=== PATIENT | male | born 1985 | race African-American/Black ===

== ENCOUNTER 2016-10-23 12:52 | Inpatient (IN) | payer OTHER ==
[2016-10-23] VITALS (12 sets, daily range): BP systolic 98–140; BP diastolic 60–88; PULSE 71–216; RESP 16–24; TEMP 97.4–98.7; O2SAT 94–100
[~2016-10-23] VITALS: Ht 190.5 cm; Wt 112.4 kg
[~2016-10-23 12:52] MED LIST: IBUP800T23 PO; LIDOCAINE HCL 2% 100 MG/5 ML SYRINGE IV PUSH ONE; LIDOCAINE/D5W INJ 500 ML IV ONE; MAGNESIUM SULFATE 40 MEQ/10 ML VIAL IV ONE; ORPH100T PO; SODIUM BICARBONATE 8.4% INJ 50 MEQ/50 ML SYR IV ONE; TRAM50 PO
[2016-10-23] MEDS ORDERED: CALCIUM GLUCONATE 10% 1 GM/10 ML VIAL ONE (13:08)
[2016-10-23 13:46] LABS: I-STAT POTASSIUM 3.6 MMOL/L (3.5-4.9)
[2016-10-23 14:27] LABS: ANION GAP 14 MEQ/L (5-15); BLOOD UREA NITROGEN 24 MG/DL (7-18); CHLORIDE 103 MEQ/L (98-107); GLOMERULAR FILTRATION RATE 41 ML/MIN (>89); MAGNESIUM 1.9 MG/DL (1.5-2.5); POTASSIUM 3.6 MEQ/L (3.5-5.1); SODIUM (NA) 139 MEQ/L (136-145)
[2016-10-23 14:29] LABS: AUTOMATED NEUTROPHIL # 9.4 TH/MM3 (1.8-7.7); BASOPHIL # 0.1 TH/MM3 (0-0.2); BASOPHIL % 0.4 % (0.0-2.0); EOSINOPHIL % 0.2 % (0.0-4.0); HEMATOCRIT 46.1 % (39.0-51.0); HEMO FLAGS DIFF FINAL; LYMPH % 24.3 % (9.0-44.0); LYMPHOCYTE # 3.4 TH/MM3 (1.0-4.8); MEAN CELL VOLUME 72.8 FL (80.0-100.0); MEAN CORPUSCULAR HEMOGLOBIN 22.4 PG (27.0-34.0); MEAN CORPUSCULAR HGB CONC 30.7 % (32.0-36.0); MONO % 7.1 % (0.0-8.0); PLATELET COUNT 261 TH/MM3 (150-450); RED BLOOD COUNT 6.32 MIL/MM3 (4.50-5.90); RED CELL DISTRIBUTION WIDTH 15.9 % (11.6-17.2); WHITE BLOOD COUNT 13.8 TH/MM3 (4.0-11.0)
[2016-10-23 14:31] LABS: CREATINE KINASE 257 U/L (39-308)
[2016-10-23 14:33] LABS: APTT (PATIENT) 29.2 SEC (24.3-30.1); PROTHROMBIN TIME - PATIENT 11.5 SEC (9.8-11.6)
--- NOTE | 2016-10-23 14:34 | PD ---
HPI Chief Complaint: Chest Pain Time Seen by Provider: 13:35 Travel History International Travel<30 days: No Contact w/Intl Traveler<30days: No Traveled to known affect area: No History of Present Illness HPI 31yo M with no PMH presents to the ED with c/o chest pain that started after smoking marajuana 2-3 days ago. Stated that he felt palpitations. States he took 2 of his mother's blood pressure medication yesterday because he looked online and decided to do that. It sounded like diltiazem. States chest pain was intermittent, sharp. Denies any sob, n/v, abdominal pain. PFSH Past Medical History Medical History: Denies Significant Hx Past Surgical History Surgical History: No Previous Surgery Social History Alcohol Use: No Tobacco Use: Yes (0.5 PPD) Substance Use: Yes (marijuana) Allergies-Medications (Allergen,Severity, Reaction): Coded Allergies: No Known Allergies (Verified , 10/23/16) Reported Meds & Prescriptions Reported Meds & Active Scripts Active No Active Prescriptions or Reported Medications Review of Systems Except as stated in HPI: all other systems reviewed are Neg Physical Exam Narrative GENERAL: 31yo M in moderate distress. SKIN: Focused skin assessment warm/dry. HEAD: Atraumatic. Normocephalic. EYES: Pupils equal and round. No scleral icterus. No injection or drainage. ENT: No nasal bleeding or discharge. Mucous membranes pink and moist. NECK: Trachea midline. No JVD. CARDIOVASCULAR: Tachycardic in the 200s. No murmur appreciated. RESPIRATORY: No accessory muscle use. Clear to auscultation. Breath sounds equal bilaterally. GASTROINTESTINAL: Abdomen soft, non-tender, nondistended. MUSCULOSKELETAL: No obvious deformities. No clubbing. No cyanosis. No edema. NEUROLOGICAL: Awake and alert. No obvious cranial nerve deficits. Motor grossly within normal limits. Normal speech. PSYCHIATRIC: Appropriate mood and affect; insight and judgment normal. Data Data Last Documented VS Vital Signs Date Time Temp Pulse Resp B/P Pulse Ox O2 Delivery O2 Flow Rate FiO2 10/23/16 15:02 81 16 126/86 100 10/23/16 13:35 Nasal Cannula 2 10/23/16 12:58 97.4 Orders Calcium Gluconate Inj (Calcium Gluconate (10/23/16 13:08) I-Stat Profile (10/23/16 13:34) I-Stat Creatinine (10/23/16 13:34) Basic Metabolic Panel (Bmp) (10/23/16 13:35) Ckmb (Isoenzyme) Profile (10/23/16 13:35) Complete Blood Count With Diff (10/23/16 13:35) Magnesium (Mg) (10/23/16 13:35) Prothrombin Time / Inr (Pt) (10/23/16 13:35) Act Partial Throm Time (Ptt) (10/23/16 13:35) Troponin I (10/23/16 13:35) Chest, Single Ap (10/23/16 13:35) CKMB (10/23/16 13:36) CKMB% (10/23/16 13:36) Sodium Chlor 0.9% 1000 Ml Inj (Ns 1000 M (10/23/16 14:45) Midazolam Inj (Versed Inj) (10/23/16 14:45) Sodium Bicarbonate 8.4% Inj (Sodium Bica (10/23/16 14:45) Sodium Bicarbonate 8.4% Inj (Sodium Bica (10/23/16 14:45) Echo 2d Comp With Doppler (10/23/16 ) Cbc No Diff, Includes Plts (10/24/16 05:00) Cbc No Diff, Includes Plts (10/25/16 05:00) Cbc No Diff, Includes Plts (10/26/16 05:00) Cbc No Diff, Includes Plts (10/27/16 05:00) Cbc No Diff, Includes Plts (10/28/16 05:00) Cbc No Diff, Includes Plts (10/29/16 05:00) Cbc No Diff, Includes Plts (10/30/16 05:00) Basic Metabolic Panel (Bmp) (10/24/16 05:00) Basic Metabolic Panel (Bmp) (10/25/16 05:00) Basic Metabolic Panel (Bmp) (10/26/16 05:00) Basic Metabolic Panel (Bmp) (10/27/16 05:00) Basic Metabolic Panel (Bmp) (10/28/16 05:00) Basic Metabolic Panel (Bmp) (10/29/16 05:00) Basic Metabolic Panel (Bmp) (10/30/16 05:00) Magnesium Oxide (Mag-Ox) (10/23/16 15:15) Magnesium Sulfate Inj (Magnesium Sulfate (10/23/16 15:15) Magnesium Sulfate Inj (Magnesium Sulfate (10/23/16 15:15) Potassium Chlor 20 Meq Premix (Kcl 20 Me (10/23/16 15:15) Potassium Chlor 20 Meq Premix (Kcl 20 Me (10/23/16 15:15) Potassium Chlor 40 Meq Premix (Kcl 40 Me (10/23/16 15:15) Potassium Chlor 40 Meq Premix (Kcl 40 Me (10/23/16 15:15) Potassium Phosphate (K-Phos) (10/23/16 15:15) Potassium Phosphate (K-Phos) (10/23/16 15:15) Sodium Phosphate Inj (Sodium Phosphate I (10/23/16 15:15) ^ Medication Admin Instruction (10/23/16 15:08) Notify Dr: Other (10/23/16 15:08) Inpatient Certification (10/23/16 15:08) Resp Ezpap/Pep Therapy (10/23/16 15:08) Resp Acapella/Pep/Chest Vibra (10/23/16 15:08) Resp Incentive Spirometry (10/23/16 15:08) Code Status (10/23/16 15:08) Vital Signs (Adult) ALCON.Q1H (10/23/16 15:08) Activity Bed Rest (10/23/16 15:08) ^ Elevate Head Of Bed (10/23/16 15:08) Neuro Checks . ORDERED (10/23/16 15:08) Diet Npo (10/23/16 Dinner) Acetaminophen (Tylenol) (10/23/16 15:15) Ondansetron Inj (Zofran Inj) (10/23/16 15:15) Docusate Sodium (Colace) (10/23/16 21:00) Bisque Kiln Drawer / Telemetry ALCON.Q8H (10/23/16 15:08) Heparin Inj (Heparin Inj) (10/23/16 16:00) Scd Bilateral/Knee High ALCON.BID (10/23/16 15:08) ^ Initiate Protocol (10/23/16 15:08) ^ Instruction (10/23/16 15:08) Misc Nursing Information (10/23/16 15:15) Chlorhexidine 2% Cloth (Chlorhexidine 2% (10/24/16 04:00) Chlorhexidine 2% Cloth (Chlorhexidine 2% (10/23/16 15:15) Mrsa Pcr Surveillance (10/23/16 15:08) Magnesium (Mg) (10/24/16 06:00) Magnesium (Mg) (10/25/16 06:00) Magnesium (Mg) (10/26/16 06:00) Magnesium (Mg) (10/27/16 06:00) Magnesium (Mg) (10/28/16 06:00) Magnesium (Mg) (10/29/16 06:00) Magnesium (Mg) (10/30/16 06:00) Phosphorus (Po4) (10/24/16 06:00) Phosphorus (Po4) (10/25/16 06:00) Phosphorus (Po4) (10/26/16 06:00) Phosphorus (Po4) (10/27/16 06:00) Phosphorus (Po4) (10/28/16 06:00) Phosphorus (Po4) (10/29/16 06:00) Phosphorus (Po4) (10/30/16 06:00) Troponin I (10/23/16 22:00) Troponin I (10/24/16 06:00) Troponin I (10/24/16 14:00) B-Type Natriuretic Peptide (10/23/16 15:14) Tylenol (Acetaminophen) (10/23/16 15:14) Salicylates (Aspirin) (10/23/16 15:14) Admit Order (Ed Use Only) (10/23/16 15:17) Digoxin (10/23/16 22:00) Labs Laboratory Tests Test 10/23/16 13:36 White Blood Count 13.8 TH/MM3 Red Blood Count 6.32 MIL/MM3 Hemoglobin 14.2 GM/DL Bedside Hemoglobin 16.3 G/DL Hematocrit 46.1 % Bedside Hematocrit 48.0 % Mean Corpuscular Volume 72.8 FL Mean Corpuscular Hemoglobin 22.4 PG Mean Corpuscular Hemoglobin 30.7 % Concent Red Cell Distribution Width 15.9 % Platelet Count 261 TH/MM3 Mean Platelet Volume 10.2 FL Neutrophils (%) (Auto) 68.0 % Lymphocytes (%) (Auto) 24.3 % Monocytes (%) (Auto) 7.1 % Eosinophils (%) (Auto) 0.2 % Basophils (%) (Auto) 0.4 % Neutrophils # (Auto) 9.4 TH/MM3 Lymphocytes # (Auto) 3.4 TH/MM3 Monocytes # (Auto) 1.0 TH/MM3 Eosinophils # (Auto) 0.0 TH/MM3 Basophils # (Auto) 0.1 TH/MM3 CBC Comment DIFF FINAL Differential Comment Prothrombin Time 11.5 SEC Prothromb Time International 1.0 RATIO Ratio Activated Partial 29.2 SEC Thromboplast Time Bedside Sodium 140 MMOL/L Sodium Level 139 MEQ/L Bedside Potassium 3.6 MMOL/L Potassium Level 3.6 MEQ/L Bedside Chloride 105 MMOL/L Chloride Level 103 MEQ/L Carbon Dioxide Level 22.0 MEQ/L Anion Gap 14 MEQ/L Bedside Blood Urea Nitrogen 29 MG/DL Blood Urea Nitrogen 24 MG/DL Creatinine 2.30 MG/DL Bedside Creatinine 2.2 MG/DL Estimat Glomerular Filtration 41 ML/MIN Rate Bedside Glucose 138 MG/DL Random Glucose 138 MG/DL Calcium Level 9.4 MG/DL Magnesium Level 1.9 MG/DL Total Creatine Kinase 257 U/L Creatine Kinase MB 4.1 NG/ML Troponin I 0.59 NG/ML B-Type Natriuretic Peptide 501 PG/ML MDM Medical Decision Making Medical Screen Exam Complete: Yes Emergency Medical Condition: Yes Interpretation(s) Multiple EKGs were obtained. First one showed really wide complex tachycardia at 215bpm. QRS is more than 200ms. Normal axis. Repeat EKG showed sinus rhythm with 98bpm and PVCs and PACs. Normal axis. Differential Diagnosis TCA overdose vs. electrolyte disorder vs. VTach vs. aflutter with aberrancy vs. SVT with aberrancy Narrative Course 31yo M with c/o chest pain and palpitation found to be with heart rate in the low 200s. Pt had very wide QRS complex and I was concern about sodium channel jeffy overdose or tox so pt was given 2 amps of sodium bicarb and calcium gluconate which narrowed and slowed the rhythm but it quickly went back to low 200s. Pt then given another 2 amps of sodium bicarb. EKG showed frequent PVCs and PACs so magnesium 2gm IV given. Pt converts to sinus but back to wide complex tachycardia and then blood pressure became low in systolic 90s and pt was cardioverted with 50 J and 2 mg of versed. Pt then converted to sinus rhythm and has remained in sinus. Pt denies any other drugs. Discussed with Dr. Pablo who came to evaluate the patient. Labs reviewed, leukocytosis at 13.8. BUN/creatinine 24/2.30, pt given NS IVF. Troponin is mildly elevated at 0.59 but pt has been tachycardic in the 200s and cardioverted. CXR showed no acute cardiopulmonary disease. Pt reevaluated at bedside and feels better. HR has been consistently in the 80s. Discussed with on call pharmacy technician Dr. Ellison and accepted to ICU under his service. Critical Care Narrative Aggregate critical care time was 45 minutes. Time to perform other separately billable procedures was not included in the critical care time. My time did not include minutes spent treating any other patients simultaneously or on activities that did not directly contribute to the patient's treatment. The services I provided to this patient were to treat and/or prevent clinically significant deterioration that could result in: cardiovascular collapse or . I provided critical care services requiring my management, as noted below: Chart data review, documentation time, medication orders and management, vital sign assessments/reviewing monitor data, ordering and reviewing lab tests, ordering and interpreting/reviewing x-rays and diagnostic studies, care of the patient and discussion of the patient with the admitting physicians. Diagnosis Primary Impression: Wide-complex tachycardia Admitting Information Admitting Physician Requests: Admit Scripts No Active Prescriptions or Reported Meds Kathleen Qiu DO October 23, 2016 14:34
--- NOTE | 2016-10-23 14:37 | RADRPT ---
EXAM DATE/TIME: 10/23/2016 13:42 [facility] COMPARISON: No previous studies available for comparison. INDICATIONS : Chest pain, shortness of breath, and overall weakness. MEDICAL HISTORY : None. SURGICAL HISTORY : None. ENCOUNTER: Initial ACUITY: 3 days PAIN SCORE: 8/10 LOCATION: Bilateral chest FINDINGS: Single AP view of the chest. The lungs are clear. Cardiomediastinal silhouette within normal limits. No evidence of pleural effusion or pneumothorax. CONCLUSION: No acute cardiopulmonary disease identified. Gamal Gillespie MD on October 23, 2016 at 14:35 Board Certified Radiologist. This report was verified electronically.
[2016-10-23] MEDS ORDERED: MIDAZOLAM HCL 2 MG/2 ML VIAL IV PUSH ONE (14:45)
[2016-10-23] MEDS ORDERED: SODIUM CHLOR 0.9% 1000 ML INJ 1,000 ML IV ONE (14:45)
[2016-10-23] MEDS ORDERED: SODIUM BICARBONATE 8.4% INJ 50 MEQ/50 ML SYR IV PUSH ONE ×2 (14:45)
[2016-10-23 14:47] LABS: CKMB 4.1 NG/ML (0.5-3.6)
[2016-10-23] MEDS ORDERED: ACETAMINOPHEN 325 MG TAB PO PRN (15:15)
[2016-10-23] MEDS ORDERED: POTASSIUM CHLOR 20 MEQ PREMIX 100 ML IV PRN ×2 (15:15)
[2016-10-23] MEDS ORDERED: MAGNESIUM SULFATE INJ 2 GM in SODIUM CHLORIDE 0.9% INJ 96 ML IV PRN (15:15)
[2016-10-23] MEDS ORDERED: MAGNESIUM OXIDE 400 MG TAB PO PRN (15:15)
[2016-10-23] MEDS ORDERED: MAGNESIUM SULFATE INJ 4 GM in SODIUM CHLORIDE 0.9% INJ 92 ML IV PRN (15:15)
[2016-10-23] MEDS ORDERED: SODIUM PHOSPHATE INJ 30 MMOL in SODIUM CHLOR 0.9% 250 ML INJ 240 ML IV PRN (15:15)
[2016-10-23] MEDS ORDERED: CHLORHEXIDINE GLUCONATE 2 % 1 PACK (2 CLOTHS) TOP PRN (15:15)
[2016-10-23] MEDS ORDERED: ONDANSETRON HCL 4 MG/2 ML VIAL IV PRN (15:15)
[2016-10-23] MEDS ORDERED: POTASSIUM PHOSPHATE MONOBASIC 500 MG TAB PO PRN (15:15)
[2016-10-23] MEDS ORDERED: MISCELLANEOUS NURSING INFORMATION XX SCH (15:15)
[2016-10-23] MEDS ORDERED: POTASSIUM PHOSPHATE MONOBASIC 500 MG TAB PO/TUBE PRN (15:15)
[2016-10-23] MEDS ORDERED: POTASSIUM CHLOR 40 MEQ PREMIX 100 ML IV PRN ×2 (15:15)
--- NOTE | 2016-10-23 16:00 | HHI.HP ---
[facility] Service Critical Care Medicine Primary Care Physician No Primary Care Physician Admission Diagnosis VTach Diagnosis: Chief Complaint: shortness of breath Travel History International Travel<30 Days: No Contact w/Intl Traveler <30 Da: No Traveled to Known Affected Are: No History of Present Illness This is a 31 year old male with a completely unremarkable past medical history in his usual state of health who presents to the emergency department with a few hours of acute shortness of breath and chest pain. He states that he has been smoking nightly marijuana and drinking about 1/2 to 1 beer each night, and last night after smoking a joint, he had acute onset of this shortness of breath and substernal chest pain. He states that he could not lie flat with this, and felt much better with a fan blowing on him. states getting up and trying to walk around made it worse, and when he did sit up, he became dizzy and light-headed. This has never happened to him before. He states that when it happened, he took 2 of his mother's "heart pills" which begin with a d- and he thinks are some kind of "channel jeffy." He denies fever, chills, LE edema, recent infections, palpitations, heat or cold intolerance, polydypsia, polyuria. denies constipation, diarrhea, abdominal pain. He denies any other illicit drugs, in particular, he has never tried cocaine, methamphetamine. He does state that his father "dropped suddenly on the basketball court in his early 30s". In the emergency department, when he arrived, he was found to be in a wide- complex tachycardia with HR in the 200s, and a sbp in the 90s. He was cardioverted back into NSR. two more episodes of what appeared to be ventricular tachycardia spontaneously converted after that. His laboratory data is significant for Cr 2.3, K 3.6, Mg 1.9, trop 0.59, CK 257. BNP pending. Critical care medicine is consulted to evaluate and manage his new wide- complex arrhythmia. Review of Systems Constitutional: COMPLAINS OF: Dizziness, DENIES: Diaphoretic episodes, Fatigue , Fever, Weight gain, Weight loss, Chills, Change in appetite, Night Sweats Endocrine: DENIES: Heat/cold intolerance, Polydipsia, Polyuria, Polyphagia Eyes: DENIES: Blurred vision Respiratory: COMPLAINS OF: Shortness of breath, DENIES: Apneas, Cough, Snoring , Wheezing, Hemoptysis, Sputum production Cardiovascular: COMPLAINS OF: Chest pain, Dyspnea on Exertion, PND, Orthopnea, DENIES: Palpitations, Syncope, Lower Extremity Edema, Claudication Gastrointestinal: DENIES: Abdominal pain, Black stools, Bloody stools, Constipation, Diarrhea, Nausea, Vomiting Genitourinary: DENIES: Urinary frequency, Urgency Neurologic: DENIES: Headache, Localized weakness, Paresthesias Past Family Social History Allergies: Coded Allergies: No Known Allergies (Verified , 10/23/16) Past Medical History none. Past Surgical History inguinal hernia repair as a young child Reported Medications none. Active Ordered Medications See MAR Family History father- "dropped suddenly on the basketball court in his early 30s"- ?SCD? mother- high blood pressure, diabetes paternal grandmother- "heart disease when she was old" Social History does not smoke tobacco daily marijuana use daily etoh, but states 1/2 - 1 beer per night. denies stimulant use, including methamphetamine or cocaine. Physical Exam Vital Signs Vital Signs Date Time Temp Pulse Resp B/P Pulse Ox O2 Delivery O2 Flow Rate FiO2 10/23/16 15:02 81 16 126/86 100 10/23/16 14:26 87 16 135/88 100 10/23/16 13:35 84 16 129/60 99 Nasal Cannula 2 10/23/16 13:25 206 20 135/83 100 Nasal Cannula 2 10/23/16 13:15 210 18 98/71 100 Nasal Cannula 2 10/23/16 13:02 215 18 100 10/23/16 12:58 97.4 216 24 108/70 98 Room Air Physical Exam gen: young male, lying in bed, no acute distress heent: nc. at. perrl. eomi. mucous membranes moist. neck: no jvd. trachea midline. chest: Zoll pad's in place. equal chest rise. clear to auscultation. cv: normal rate, regular rhythm. s1, s2 without appreciable murmurs abd: obese, soft, nontender, nondistended. no guarding. extr: no peripheral edema. distal pulses 2+ neuro: rass 0. a+ox3. no gross focal motor or sensory deficits. Laboratory Laboratory Tests Test 10/23/16 13:36 White Blood Count 13.8 Red Blood Count 6.32 Hemoglobin 14.2 Bedside Hemoglobin 16.3 Hematocrit 46.1 Bedside Hematocrit 48.0 Mean Corpuscular Volume 72.8 Mean Corpuscular Hemoglobin 22.4 Mean Corpuscular Hemoglobin 30.7 Concent Red Cell Distribution Width 15.9 Platelet Count 261 Mean Platelet Volume 10.2 Neutrophils (%) (Auto) 68.0 Lymphocytes (%) (Auto) 24.3 Monocytes (%) (Auto) 7.1 Eosinophils (%) (Auto) 0.2 Basophils (%) (Auto) 0.4 Neutrophils # (Auto) 9.4 Lymphocytes # (Auto) 3.4 Monocytes # (Auto) 1.0 Eosinophils # (Auto) 0.0 Basophils # (Auto) 0.1 CBC Comment DIFF FINAL Differential Comment Prothrombin Time 11.5 Prothromb Time International 1.0 Ratio Activated Partial 29.2 Thromboplast Time Bedside Sodium 140 Sodium Level 139 Bedside Potassium 3.6 Potassium Level 3.6 Bedside Chloride 105 Chloride Level 103 Carbon Dioxide Level 22.0 Anion Gap 14 Bedside Blood Urea Nitrogen 29 Blood Urea Nitrogen 24 Creatinine 2.30 Bedside Creatinine 2.2 Estimat Glomerular Filtration 41 Rate Bedside Glucose 138 Random Glucose 138 Calcium Level 9.4 Magnesium Level 1.9 Total Creatine Kinase 257 Creatine Kinase MB 4.1 Troponin I 0.59 Result Diagram: 10/23/16 1336 10/23/16 1336 Imaging Last Impressions Chest X-Ray 10/23/16 1335 Signed Impressions: Service Date/Time: Sunday, October 23, 2016 13:42 - CONCLUSION: No acute cardiopulmonary disease identified. Gamal Gillespie MD Assessment and Plan Assessment and Plan Assessment: 31 year old male who was previously healthy and now presents with unstable wide-complex tachycardia. The timing is suspicious for toxic exposure given the temporal association with his marijuana use. However, his family history of what might sound like sudden cardiac is concerning and will require further evaluation. for now, His dysrhythmias have already proven to be life-threatening and recurrent, so we will admit him to the ICU. He is critically ill at this time. Plan: Wide Complex Tachycardia -- urgent 2d echo -- bnp -- tele in an ICU setting. -- if he has recurrent tachycardia, would consider adding an anti-arrhythmic. -- send TSH, free t4 -- send digoxin level given his history of "taking mom's bp med that starts with a d-" -- Cardiology consulted: Dr. Pablo following. -- urine drug screen Elevated Troponin -- likely combination of demand from tachycardia and leak from cardioversion -- trend trop q8h -- does not clinically appear to have ACS. will not anticoagulate at this time. Acute Kidney Injury -- most likely pre-renal from tachycardia mediated hypoperfusion -- now that we have restored good perfusing rhythm, will trend daily bmp Hypokalemia, Hypomagnesemia -- ICU electrolyte protocol -- daily mg, phos, K levels [facility] Will keep the patient NPO during work-up, in case he requires repeat emergent cardioversion for unstable wide-complex tachycardia. Dispo: admit to the ICU. Critical Care Time: 54 minutes, exclusive of separately billable procedures. Code Status Full Code Discussed Condition With Dr. Sousa, Dr. Pablo. Haider Ellison MD October 23, 2016 16:00
--- NOTE | 2016-10-23 16:04 | MB ---
cc: ARTURO BARTON MD DATE OF CONSULTATION 10/23/16 REASON FOR CONSULTATION Wide complex tachycardia. HISTORY OF PRESENT ILLNESS Mr. Hutson is a 31-year-old man who has an unremarkable past medical history. He reports that he did smoke marijuana two nights ago. Almost immediately he had chest pain and tachycardia. It lasted for 1-2 hours and spontaneously went away. Then last night he had smoked some marijuana again and the same thing happened again, namely tachycardia and chest pain. The patient subsequently took two 240 milligram pills of his mother's Cardizem. His symptoms did not improve and he subsequently came into the emergency room. In the emergency room he was found to be in a wide complex tachycardia. Details of the events are per the ED doctors record. He did subsequently require cardioversion and did convert back into normal sinus rhythm. The patient is currently asymptomatic. PAST MEDICAL HISTORY Past medical history none. OUTPATIENT MEDICATIONS None. ALLERGIES No known drug allergies. SOCIAL HISTORY The patient does smoke marijuana. FAMILY HISTORY Noncontributory. REVIEW OF SYSTEMS Except as mentioned in the HPI all 12 systems are negative. PHYSICAL EXAMINATION VITAL SIGNS: On physical examination vital signs are 97.4, 84, 16, 129/60. GENERAL: In general he is an overweight man who is in no apparent distress. NECK: His neck is free from JVD. LUNGS: The lungs are bilaterally clear to auscultation. CARDIOVASCULAR: On examination he has a normal S1-S2. I did not appreciate any murmurs, rubs or gallops. ABDOMEN: The abdomen is soft. EXTREMITIES: Free from edema. CARDIOLOGY STUDIES Initial EKG shows a wide complex tachycardia at over 200 beats a minute. Telemetry - while I was standing in the room the patient appeared to go from normal sinus into a brief wide complex tachycardia and then into atrial fibrillation. This was confirmed with the telemetry strips. IMPRESSION Dysrhythmia: This is almost certainly secondary to his illicit drug use. I suspect that the marijuana was laced with some other drugs. The patient previously reports that he was in good health and is able to literally play basketball and do back flips without any difficulty. At this point I would continue ruling him out and observe him. I am a bit apprehensive to put him on any beta-blockers given that he had taken such a large amount of Cardizem last night though if he has recurrent episodes I would go ahead and start it. Mildred Vazquez /2:25 PM /3:39 PM
[2016-10-23] MEDS: HEPARIN SODIUM - SQ 10,000 UNITS/ML VIAL SQ SCH (16:51)
[2016-10-23] MEDS: DOCUSATE SODIUM 100 MG CAP PO SCH (20:39)
[2016-10-23 22:57] LABS: ACETAMINOPHEN LESS THAN 2.0 MCG/ML (10.0-30.0); DIGOXIN 0.2 NG/ML (0.8-2.0); FREE T4 1.22 NG/DL (0.76-1.46)
[2016-10-24] VITALS (9 sets, daily range): BP systolic 116–138; BP diastolic 74–84; PULSE 68–100; RESP 18; TEMP 97.8–98.7; O2SAT 96–100
[2016-10-24] MEDS: HEPARIN SODIUM - SQ 10,000 UNITS/ML VIAL SQ SCH ×4 (00:09→23:38)
[2016-10-24] MEDS: CHLORHEXIDINE GLUCONATE 2 % 1 PACK (2 CLOTHS) TOP SCH (02:44)
[2016-10-24 07:08] LABS: AMPHETAMINE, URINE NEG (NEG); BARBITURATES, URINE NEG (NEG); COCAINE, URINE NEG (NEG)
[2016-10-24 07:13] LABS: HEMATOCRIT 42.8 % (39.0-51.0); MEAN CELL VOLUME 72.2 FL (80.0-100.0); MEAN CORPUSCULAR HEMOGLOBIN 22.4 PG (27.0-34.0); MEAN CORPUSCULAR HGB CONC 31.1 % (32.0-36.0); PLATELET COUNT 203 TH/MM3 (150-450); RED BLOOD COUNT 5.93 MIL/MM3 (4.50-5.90); RED CELL DISTRIBUTION WIDTH 15.5 % (11.6-17.2); REVIEW FLAG FINAL; WHITE BLOOD COUNT 8.6 TH/MM3 (4.0-11.0)
[2016-10-24 07:24] LABS: BICARBONATE 28.9 MEQ/L (21.0-32.0); POTASSIUM 3.5 MEQ/L (3.5-5.1)
[2016-10-24 07:25] LABS: MAGNESIUM 2.1 MG/DL (1.5-2.5)
--- NOTE | 2016-10-24 08:23 | HHI.CCPN ---
Subjective Remarks/Hospital Course Hospital Course: This is a 31 year old male with a completely unremarkable past medical history in his usual state of health who presents to the emergency department with a few hours of acute shortness of breath and chest pain. He states that he has been smoking nightly marijuana and drinking about 1/2 to 1 beer each night, and last night after smoking a joint, he had acute onset of this shortness of breath and substernal chest pain. He states that he could not lie flat with this, and felt much better with a fan blowing on him. states getting up and trying to walk around made it worse, and when he did sit up, he became dizzy and light-headed. This has never happened to him before. He states that when it happened, he took 2 of his mother's "heart pills" which begin with a d- and he thinks are some kind of "channel jeffy." He denies fever, chills, LE edema, recent infections, palpitations, heat or cold intolerance, polydypsia, polyuria. denies constipation, diarrhea, abdominal pain. He denies any other illicit drugs, in particular, he has never tried cocaine, methamphetamine. He does state that his father "dropped suddenly on the basketball court in his early 30s". In the emergency department, when he arrived, he was found to be in a wide- complex tachycardia with HR in the 200s, and a sbp in the 90s. He was cardioverted back into NSR. two more episodes of what appeared to be ventricular tachycardia spontaneously converted after that. His laboratory data is significant for Cr 2.3, K 3.6, Mg 1.9, trop 0.59, CK 257. BNP pending. Critical care medicine is consulted to evaluate and manage his new wide- complex arrhythmia. Subjective: 10/24: no episodes of VT overnight. echo still pending. trop slight uptrend and now downtrending, peak at 1.43. Cr downtrending. BNP elevated at 501. Objective Vital Signs Date Time Temp Pulse Resp B/P Pulse Ox O2 Delivery O2 Flow Rate FiO2 10/24/16 07:00 73 10/24/16 07:00 98.3 18 122/84 96 10/24/16 04:00 Room Air 10/23/16 13:35 2 Intake and Output 5/10/23/16 10/24/16 08:00 16:00 00:00 Output Total 500 ml Balance -500 ml Result Diagram: 10/24/16 0612 10/24/16 0612 Imaging Last Impressions Chest X-Ray 10/23/16 1335 Signed Impressions: Service Date/Time: Sunday, October 23, 2016 13:42 - CONCLUSION: No acute cardiopulmonary disease identified. Gamal Gillespie MD Objective Remarks gen: young male, lying in bed, no acute distress heent: nc. at. perrl. eomi. mucous membranes moist. neck: no jvd. trachea midline. chest: Zoll pad's in place. equal chest rise. clear to auscultation. cv: normal rate, regular rhythm. s1, s2 without appreciable murmurs abd: obese, soft, nontender, nondistended. no guarding. extr: no peripheral edema. distal pulses 2+ neuro: rass 0. a+ox3. no gross focal motor or sensory deficits. A/P Assessment and Plan Assessment: 31 year old male who was previously healthy and now presents with unstable wide-complex tachycardia. The timing is suspicious for toxic exposure given the temporal association with his marijuana use. However, his family history of what might sound like sudden cardiac is concerning and will require further evaluation. He has been stable without arrhythmia since after cardioversion on ER evaluation. We will advance his diet. follow up echo. transfer to telemetry floor. Plan: Wide Complex Tachycardia -- f/u 2d echo -- bnp elevated at 501. -- continue telemetry. -- if he has recurrent tachycardia, would consider adding an anti-arrhythmic. -- TSH, free t4 normal. -- Cardiology consulted: Dr. Pablo following. -- urine drug screen positive for benzos (iatrogenic) and cannabinoids. Elevated Troponin- downtrending. -- likely combination of demand from tachycardia and leak from cardioversion -- trend trop q8h -- does not clinically appear to have ACS. will not anticoagulate at this time. Acute Kidney Injury- resolving. -- most likely pre-renal from tachycardia mediated hypoperfusion -- now that we have restored good perfusing rhythm, will trend daily bmp Hypokalemia, Hypomagnesemia -- ICU electrolyte protocol -- daily mg, phos, K levels SCDs SQH advance diet as tolerated. Dispo: transfer out of ICU. hospitalist consult. Haider Ellison MD October 24, 2016 08:23
[2016-10-24] MEDS: DOCUSATE SODIUM 100 MG CAP PO SCH ×2 (08:40→21:03)
[2016-10-24 09:19] LABS: HDL CHOLESTEROL 25.6 MG/DL (40.0-60.0)
--- NOTE | 2016-10-24 11:06 | PD.CARD.PN ---
Subjective Subjective Remarks I feel great Objective Medications Current Medications Medications (Trade) Dose Ordered Sig/Chris Route Start Time Stop Time Status Last Admin Magnesium Oxide 800 mg 800 mg UNSCH PRN PO 10/23/16 15:15 Magnesium Sulfate 4 gm/Sodium Chloride 100 ml @ 50 mls/hr UNSCH PRN IV 10/23/16 15:15 Magnesium Sulfate 2 gm/Sodium Chloride 100 ml @ 50 mls/hr UNSCH PRN IV 10/23/16 15:15 Potassium Chloride 100 ml @ 50 mls/hr Q2H PRN IV 10/23/16 15:15 Potassium Chloride 100 ml @ 50 mls/hr Q2H PRN IV 10/23/16 15:15 Potassium Chloride 100 ml @ 50 mls/hr Q2H PRN IV 10/23/16 15:15 (KCl 40 Meq Premix Inj) 100 ml @ 25 mls/hr UNSCH PRN IV 10/23/16 15:15 (K-Phos) 2,000 mg Q4H PRN PO 10/23/16 15:15 Potassium Phosphate 2000 mg 2,000 mg UNSCH PRN PO/TUBE 10/23/16 15:15 (Sodium Phosphate Inj/NS 250 ml Inj) 250 ml @ 42 mls/hr UNSCH PRN IV 10/23/16 15:15 (Tylenol) 650 mg Q6H PRN PO 10/23/16 15:15 (Zofran Inj) 4 mg Q6H PRN IV 10/23/16 15:15 (Colace) 100 mg BID PO 10/23/16 21:00 10/24/16 08:40 (Heparin Inj) 5,000 units Q8H SQ 10/23/16 16:00 10/24/16 08:39 Miscellaneous Information 1 [id number] XX 10/23/16 15:15 (Chlorhexidine 2% Cloth) 3 pack Taper DAILY@04 TOP 10/24/16 04:00 10/20/17 03:59 (Chlorhexidine 2% Cloth) 3 pack UNSCH PRN TOP 10/23/16 15:15 Vital Signs / I&O Vital Signs Date Time Temp Pulse Resp B/P Pulse Ox O2 Delivery O2 Flow Rate FiO2 10/24/16 08:00 96 Room Air 10/24/16 07:00 73 10/24/16 07:00 98.3 73 18 122/84 96 10/24/16 04:00 94 Room Air 10/24/16 03:00 70 10/24/16 03:00 97.8 74 18 116/74 96 10/24/16 00:00 94 Room Air 10/23/16 23:00 97.9 77 18 107/64 97 10/23/16 23:00 80 10/23/16 20:00 94 Room Air 10/23/16 19:36 98.7 85 16 117/71 94 10/23/16 19:00 84 10/23/16 16:56 97 Room Air 10/23/16 16:56 98.6 71 16 140/87 97 10/23/16 15:50 76 16 132/79 100 10/23/16 15:02 81 16 126/86 100 10/23/16 14:26 87 16 135/88 100 10/23/16 13:35 84 16 129/60 99 Nasal Cannula 2 10/23/16 13:25 206 20 135/83 100 Nasal Cannula 2 10/23/16 13:15 210 18 98/71 100 Nasal Cannula 2 10/23/16 13:02 215 18 100 10/23/16 12:58 97.4 216 24 108/70 98 Room Air I/O 10/23/16 10/23/16 10/23/16 10/24/16 10/24/16 10/24/16 07:00 15:00 23:00 07:00 15:00 23:00 Intake Total 480 ml Output Total 500 ml 300 ml Balance -500 ml 180 ml Intake Oral 480 ml Output Urine Total 500 ml 300 ml # Bowel Movements 0 Physical Exam GENERAL: Well developed, well nourished. No acute distress. HEENT: Jugular venous pressure is normal. CHEST: Lungs clear to auscultation bilaterally. Unlabored respiratory effort. CARDIAC: Regular rate and rhythm without S3, S4, or murmur. ABDOMEN: Soft, nontender, no hepatosplenomegaly. Bowel sounds present. EXTREMITIES: No clubbing, cyanosis, or edema. Laboratory Laboratory Tests Test 10/23/16 10/23/16 10/24/16 10/24/16 13:36 22:00 06:12 06:45 White Blood Count 13.8 TH/MM3 8.6 TH/MM3 Red Blood Count 6.32 MIL/MM3 5.93 MIL/MM3 Hemoglobin 14.2 GM/DL 13.3 GM/DL Bedside Hemoglobin 16.3 G/DL Hematocrit 46.1 % 42.8 % Bedside Hematocrit 48.0 % Mean Corpuscular Volume 72.8 FL 72.2 FL Mean Corpuscular Hemoglobin 22.4 PG 22.4 PG Mean Corpuscular Hemoglobin 30.7 % 31.1 % Concent Red Cell Distribution Width 15.9 % 15.5 % Platelet Count 261 TH/MM3 203 TH/MM3 Mean Platelet Volume 10.2 FL 9.8 FL Neutrophils (%) (Auto) 68.0 % Lymphocytes (%) (Auto) 24.3 % Monocytes (%) (Auto) 7.1 % Eosinophils (%) (Auto) 0.2 % Basophils (%) (Auto) 0.4 % Neutrophils # (Auto) 9.4 TH/MM3 Lymphocytes # (Auto) 3.4 TH/MM3 Monocytes # (Auto) 1.0 TH/MM3 Eosinophils # (Auto) 0.0 TH/MM3 Basophils # (Auto) 0.1 TH/MM3 CBC Comment DIFF FINAL Differential Comment Prothrombin Time 11.5 SEC Prothromb Time International 1.0 RATIO Ratio Activated Partial 29.2 SEC Thromboplast Time Bedside Sodium 140 MMOL/L Sodium Level 139 MEQ/L 141 MEQ/L Bedside Potassium 3.6 MMOL/L Potassium Level 3.6 MEQ/L 3.5 MEQ/L Bedside Chloride 105 MMOL/L Chloride Level 103 MEQ/L 104 MEQ/L Carbon Dioxide Level 22.0 MEQ/L 28.9 MEQ/L Anion Gap 14 MEQ/L 8 MEQ/L Bedside Blood Urea Nitrogen 29 MG/DL Blood Urea Nitrogen 24 MG/DL 16 MG/DL Creatinine 2.30 MG/DL 1.53 MG/DL Bedside Creatinine 2.2 MG/DL Estimat Glomerular Filtration 41 ML/MIN 65 ML/MIN Rate Bedside Glucose 138 MG/DL Random Glucose 138 MG/DL 89 MG/DL Calcium Level 9.4 MG/DL 8.7 MG/DL Magnesium Level 1.9 MG/DL 2.1 MG/DL Total Creatine Kinase 257 U/L Creatine Kinase MB 4.1 NG/ML Troponin I 0.59 NG/ML 1.43 NG/ML 1.40 NG/ML B-Type Natriuretic Peptide 501 PG/ML Free Thyroxine 1.22 NG/DL Thyroid Stimulating Hormone 0.950 uIU/ML 3rd Gen Digoxin Level 0.2 NG/ML Salicylates Level 2.0 MG/DL Acetaminophen Level LESS THAN 2.0 MCG/ML Phosphorus Level 3.3 MG/DL Triglycerides Level 126 MG/DL Cholesterol Level 176 MG/DL LDL Cholesterol 125 MG/DL HDL Cholesterol 25.6 MG/DL Cholesterol/HDL Ratio 6.87 RATIO Urine Opiates Screen NEG Urine Barbiturates Screen NEG Urine Amphetamines Screen NEG Urine Benzodiazepines Screen POS Urine Cocaine Screen NEG Urine Cannabinoids Screen POS Assessment and Plan Assessment and Plan Dysrhythmia: This is almost certainly secondary to his illicit drug use. I suspect that the marijuana was laced with some other drugs. The patient previously reports that he was in good health and is able to literally play basketball and do back flips without any difficulty. At this point I would continue ruling him out and observe him. I am a bit apprehensive to put him on any beta-blockers given that he had taken such a large amount of Cardizem last night though if he has recurrent episodes I would go ahead and start it. 10/24-stable without meds, no further episodes after last evening -EPS and meds risk/bene discussed, he decline which I feel is reasonable as this happened with illicit drug use NSTEMI- likely secondary to tachycardia, cardioversion in setting of Cr >2 - cath vs nuc discussed => nuc in am -pt not sure of eitiology of dad's Aida Pablo MD October 24, 2016 11:06
--- NOTE | 2016-10-24 13:20 | EC ---
Study Study Date:10/24/2016 STUDY CONCLUSIONS SUMMARY - Left ventricle: The cavity size was normal. Wall thickness was normal. Systolic function was normal. The estimated ejection fraction was in the range of 60% to 65%. Wall motion was normal; there were no regional wall motion abnormalities. - Aortic valve: Valve area: 3.03cm^2 (Vmax). If LV function is below 40, please consider prescribing an ACEI or ARB or document rationale for non-use. PROCEDURE DATA STUDY STATUS: Elective. Procedure: Transthoracic echocardiography. Image quality was good. Scanning was performed from the parasternal, apical, and subcostal acoustic windows. Study completion: The patient tolerated the procedure well. Transthoracic echocardiography. M-mode, complete 2D, complete spectral Doppler, and color Doppler. Height: Height: 75in. Weight: Weight: 133.7lb. Body mass index: BMI: 16.7kg/m^2. Body surface area: BSA: 1.85m^2. Patient status: Inpatient. CARDIAC ANATOMY LEFT VENTRICLE: The cavity size was normal. Wall thickness was normal. Systolic function was normal. The estimated ejection fraction was in the range of 60% to 65%. Wall motion was normal; there were no regional wall motion abnormalities. AORTIC VALVE: Trileaflet; normal thickness leaflets. Doppler: Transvalvular velocity was within the normal range. There was no stenosis. No regurgitation. Valve area: 3.03cm^2 (Vmax). Indexed valve area: 1.64cm^2/m^2 (Vmax). AORTA: Aortic root: The aortic root was normal in size. MITRAL VALVE: Structurally normal valve. Doppler: Transvalvular velocity was within the normal range. There was no evidence for stenosis. No regurgitation. Valve area by pressure half-time: 4.89cm^2. Indexed valve area by pressure half-time: 2.64cm^2/m^2. Peak gradient: 6mm Hg (D). LEFT ATRIUM: The atrium was normal in size. RIGHT VENTRICLE: The cavity size was normal. Wall thickness was normal. PULMONIC VALVE: Doppler: Transvalvular velocity was within the normal range. There was no evidence for stenosis. No regurgitation. TRICUSPID VALVE: Structurally normal valve. Doppler: Transvalvular velocity was within the normal range. No regurgitation. Peak gradient: 16mm Hg (D). PULMONARY ARTERY: The main pulmonary artery was normal-sized. Systolic pressure was within the normal range. RIGHT ATRIUM: The atrium was normal in size. PERICARDIUM: There was no pericardial effusion. SYSTEMIC VEINS: Inferior vena cava: The vessel was normal in size. Patient weight: 133.7lb _Ejection fraction:_ 65-75% _Fractional shortening:_ 32% up to 5Kg 5-11.5Kg 11.6-22.9Kg 23-45Kg 45-57Kg Aortic Root 7-13 <17 13-22 17-27 17-27 LA diam 6-13 <23 24-38 33-47 37-40 RVID 10-17 7-15 7-15 7-18 8-17 LVIDd 12-22 <32 24-38 33-47 37-40 LVPW 2-4 3-6 5-7 6-8 7-8 IVS 2-4 3-6 5-7 6-8 7-8 BASIC MEASUREMENTS ADULT NORMAL Left ventricle LV internal dimension, ED, chordal 49.3 mm 43-52 level, PLAX LV internal dimension, ES, chordal 33.6 mm 23-38 level, PLAX Fractional shortening, chordal level, 32 % >29 PLAX LV posterior wall thickness, ED 10.8 mm IVS/LVPW ratio, ED 0.93 <1.3 Volume, ED, MOD, 1-plane 178 ml Volume, ES, MOD, 1-plane 68 ml Ejection fraction, MOD, 1-plane 62 % Stroke volume, MOD, 1-plane 110 ml Volume index, ED, MOD, 1-plane 96 ml/m^2 Volume index, ES, MOD, 1-plane 37 ml/m^2 Stroke index, MOD, 1-plane 59.5 ml/m^2 Ventricular septum Septal thickness, ED 10 mm Aortic valve Leaflet separation 25 mm 15-26 Left atrium Anterior-posterior dimension 36 mm Anterior-posterior dimension index 1.95 cm/m^2 <2.2 Right ventricle RV internal dimension, ED, PLAX 27.3 mm 19-38 BASIC MEASUREMENTS ADULT NORMAL Aortic valve Leaflet separation 25 mm 15-26 Aorta Root diameter, ED 35 mm 20-37 DOPPLER MEASUREMENTS ADULT NORMAL Aortic valve Peak velocity, S 130 cm/s Valve area, Vmax 3.03 cm^2 Valve area index, Vmax 1.64 cm^2/m^2 Mitral valve Peak E-wave velocity 120 cm/s Peak A-wave velocity 49.4 cm/s Pressure half-time 45 ms Peak gradient, D 6 mm Hg Peak E/A ratio 2.4 Valve area, pressure half-time 4.89 cm^2 Valve area index, pressure half-time 2.64 cm^2/m^2 Tricuspid valve Peak gradient, D 16 mm Hg Maximal inflow velocity 197 cm/s Pulmonic valve Peak velocity, S 122 cm/s LEGEND: Mean values are shown as u=mean value. Asterisk (*) lr values outside specified normal range. Prepared and signed by Aida Pablo [id number]
--- NOTE | 2016-10-24 17:02 | EKG ---
Date Performed: 10/23/2016 Time Performed: 13:03:20 PTAGE: 31 years EKG: VENTRICULAR TACHYCARDIA VS. ATRIAL FLUTTER WITH ABBEARANCY MARKED RIGHT AXIS DEVIATION RIGH T BUNDLE BRANCH BLOCK ABNORMAL ECG NO PREVIOUS TRACING DOCTOR: Aida Pablo Interpretating Date/Time 10/24/2016 17:01:33
--- NOTE | 2016-10-24 17:02 | EKG ---
Date Performed: 10/23/2016 Time Performed: 13:21:45 PTAGE: 31 years EKG: UNCERTAIN IRREGULAR RHYTHM, POTENTIAL CONSISTENT WITH ATRIAL FIBRILLATION WITH ABBEARANCY V S. VENTRICULAR TACHYCARDIA RIGHT BUNDLE BRANCH BLOCK AND POSSIBLE RIGHT VENTRICULAR HYPERTROPHY LEFT POSTERIOR FASCICULAR BLOCK Compared to prior tracing no significant change ABNORMAL ECG PREVIOUS TRACING : 10/23/2016 13.03 DOCTOR: Aida Pablo Interpretating Date/Time 10/24/2016 17:02:09
--- NOTE | 2016-10-24 17:04 | EKG ---
Date Performed: 10/23/2016 Time Performed: 13:28:25 PTAGE: 31 years EKG: UNCERTAIN IRREGULAR RHYTHM, ATRIAL FIBRILLATION WITH ABBEARANCY VS. VENTRICULAR TACHYCARDIA INTRAVENTRICULAR CONDUCTION DELAY RIGHT VENTRICULAR HYPERTROPHY Compared to prior tracing, the patie nt is back in the wide complex tachycardia ABNORMAL ECG PREVIOUS TRACING : 10/23/2016 13.24 DOCTOR: Aida Pablo Interpretating Date/Time 10/24/2016 17:03:57
--- NOTE | 2016-10-24 17:04 | EKG ---
Date Performed: 10/23/2016 Time Performed: 13:31:13 PTAGE: 31 years EKG: UNCERTAIN REGULAR RHYTHM MARKED RIGHT AXIS DEVIATION RIGHT BUNDLE BRANCH BLOCK AND POSSIBLE RIGHT VENTRICULAR HYPERTROPHY Compared to prior tracing no significant change ABNORMAL ECG PREVIOUS TRACING : 10/23/2016 13.28 DOCTOR: Aida Pablo Interpretating Date/Time 10/24/2016 17:04:06
--- NOTE | 2016-10-24 17:04 | EKG ---
Date Performed: 10/23/2016 Time Performed: 13:24:24 PTAGE: 31 years EKG: Sinus rhythm WITH FREQUENT VENTRICULAR PREMATURE COMPLEXES BORDERLINE RIGHT AXIS DEVIATION NONSPECIFIC ST & T-WAV E ABNORMALITY Compared to previous tracing, the patien is now back in normal sinus rhythm ABNORMAL RH YT ECG PREVIOUS TRACING : 10/23/2016 13.21 DOCTOR: Aida Pablo Interpretating Date/Time 10/24/2016 17:02:31
--- NOTE | 2016-10-24 17:05 | EKG ---
Date Performed: 10/23/2016 Time Performed: 13:36:17 PTAGE: 31 years EKG: Sinus rhythm BORDERLINE RIGHT AXIS DEVIATION NONSPECIFIC ST & T-WAVE ABNORMALITY Compared to prior tracing no sig nificant change BORDERLINE ECG PREVIOUS TRACING : 10/23/2016 13.34 DOCTOR: Aida Pablo Interpretating Date/Time 10/24/2016 17:04:37
--- NOTE | 2016-10-24 17:05 | EKG ---
Date Performed: 10/23/2016 Time Performed: 13:34:04 PTAGE: 31 years EKG: Sinus rhythm WITH FREQUENT VENTRICULAR PREMATURE COMPLEXES BORDERLINE RIGHT AXIS DEVIATION NONSPECIFIC ST & T-WAV E ABNORMALITY Compared to previous tracing, the patient is now back in sinus rhythm ABNORMAL RHYTHM E CG PREVIOUS TRACING : 10/23/2016 13.31 DOCTOR: Aida Pablo Interpretating Date/Time 10/24/2016 17:04:25
[2016-10-25] VITALS (14 sets, daily range): BP systolic 121–144; BP diastolic 76–80; PULSE 64–84; RESP 18; TEMP 98.4–98.6; O2SAT 100
[2016-10-25] MEDS: CHLORHEXIDINE GLUCONATE 2 % 1 PACK (2 CLOTHS) TOP SCH (04:00)
[2016-10-25 04:58] LABS: HEMATOCRIT 41.6 % (39.0-51.0); MEAN CELL VOLUME 72.2 FL (80.0-100.0); MEAN CORPUSCULAR HEMOGLOBIN 23.3 PG (27.0-34.0); MEAN CORPUSCULAR HGB CONC 32.2 % (32.0-36.0); PLATELET COUNT 214 TH/MM3 (150-450); RED BLOOD COUNT 5.76 MIL/MM3 (4.50-5.90); RED CELL DISTRIBUTION WIDTH 15.8 % (11.6-17.2); REVIEW FLAG FINAL; WHITE BLOOD COUNT 8.2 TH/MM3 (4.0-11.0)
[2016-10-25 05:22] LABS: BICARBONATE 27.6 MEQ/L (21.0-32.0); MAGNESIUM 2.2 MG/DL (1.5-2.5); POTASSIUM 3.8 MEQ/L (3.5-5.1)
[2016-10-25] MEDS: DOCUSATE SODIUM 100 MG CAP PO SCH (09:00)
--- NOTE | 2016-10-25 09:07 | HHI.PR ---
Subjective Remarks Follow-up white complex tachycardia 10/25/16-patient seen and examined, denies any chest pain or shortness of breath. Also denies any heart palpitation. Report a "family history of sudden cardiac ?", with his dad on a basketball field in his 30s. Currently nothing by mouth pending stress test this morning Objective Vitals Vital Signs Date Time Temp Pulse Resp B/P Pulse Ox O2 Delivery O2 Flow Rate FiO2 10/25/16 07:00 66 10/25/16 04:00 100 Room Air 10/25/16 04:00 66 10/25/16 03:00 64 10/25/16 03:00 98.4 66 18 121/78 100 10/25/16 02:00 77 10/25/16 01:00 75 10/25/16 00:00 100 Room Air 10/25/16 00:00 73 10/24/16 23:00 68 10/24/16 23:00 98.5 73 18 138/83 100 10/24/16 22:00 73 10/24/16 21:00 76 10/24/16 20:00 99 Room Air 10/24/16 20:00 77 10/24/16 19:00 98.1 78 18 129/82 99 10/24/16 19:00 81 10/24/16 16:00 98.4 75 18 135/80 100 10/24/16 16:00 100 10/24/16 16:00 Room Air 10/24/16 12:00 96 Room Air 10/24/16 11:29 89 10/24/16 11:29 98.7 89 18 119/82 99 I/O 10/24/16 10/24/16 10/24/16 10/25/16 10/25/16 10/25/16 06:59 14:59 22:59 06:59 14:59 22:59 Intake Total 480 ml 120 ml 450 ml Output Total 300 ml 400 ml Balance 180 ml 120 ml 50 ml Intake Oral 480 ml 120 ml 450 ml Output Urine Total 300 ml 400 ml # Voids 2 # Bowel Movements 0 0 Result Diagram: 10/25/16 0352 10/25/16 0352 Imaging Last Impressions Chest X-Ray 10/23/16 6565 Signed Impressions: Service Date/Time: Sunday, October 23, 2016 13:42 - CONCLUSION: No acute cardiopulmonary disease identified. Gamal Gillespie MD Objective Remarks GENERAL: NAD SKIN: Warm and dry. HEAD: Normocephalic. EYES: No scleral icterus. No injection or drainage. NECK: Supple, trachea midline. No JVD or lymphadenopathy. CARDIOVASCULAR: Regular rate and rhythm without murmurs, gallops, or rubs. RESPIRATORY: Breath sounds equal bilaterally. No accessory muscle use. GASTROINTESTINAL: Abdomen soft, non-tender, nondistended. MUSCULOSKELETAL: No cyanosis, or edema. BACK: Nontender without obvious deformity. No CVA tenderness. A/P Problem List: (1) Wide-complex tachycardia ICD Code: I47.2 Status: Acute (2) Elevated troponin I level ICD Code: R74.8 Status: Acute Assessment and Plan 31-year-old man with Wide Complex Tachycardia -- Currently nothing by mouth pending nuclear stress test per cardiology this morning 10/25/16 -- 2-D echo with Systolic function was normal. The estimated ejection fraction was in the range of 60% to 65%. Wall motion was normal;there were no regional wall motion abnormalities -- continue telemetry. -- Appreciate input from cardiology -- TSH, free t4 normal. -- urine drug screen positive for benzos (iatrogenic) and cannabinoids. Elevated Troponin- --Now trending down and likely combination of demand from tachycardia and leak from cardioversion Acute Kidney Injury- resolving. -- most likely pre-renal from tachycardia mediated hypoperfusion -- Renal indices, creatinine trending down Hypokalemia, Hypomagnesemia -- Resolved SCDs Ayush Hodges MD October 25, 2016 09:07
[2016-10-25] MEDS: HEPARIN SODIUM - SQ 10,000 UNITS/ML VIAL SQ SCH (09:43)
--- NOTE | 2016-10-25 10:32 | PD.CARD.PN ---
Subjective Subjective Remarks Pt without complaints Objective Medications Current Medications Medications (Trade) Dose Ordered Sig/Chris Route Start Time Stop Time Status Last Admin Magnesium Oxide 800 mg 800 mg UNSCH PRN PO 10/23/16 15:15 Magnesium Sulfate 4 gm/Sodium Chloride 100 ml @ 50 mls/hr UNSCH PRN IV 10/23/16 15:15 Magnesium Sulfate 2 gm/Sodium Chloride 100 ml @ 50 mls/hr UNSCH PRN IV 10/23/16 15:15 Potassium Chloride 100 ml @ 50 mls/hr Q2H PRN IV 10/23/16 15:15 Potassium Chloride 100 ml @ 50 mls/hr Q2H PRN IV 10/23/16 15:15 Potassium Chloride 100 ml @ 50 mls/hr Q2H PRN IV 10/23/16 15:15 (KCl 40 Meq Premix Inj) 100 ml @ 25 mls/hr UNSCH PRN IV 10/23/16 15:15 (K-Phos) 2,000 mg Q4H PRN PO 10/23/16 15:15 Potassium Phosphate 2000 mg 2,000 mg UNSCH PRN PO/TUBE 10/23/16 15:15 (Sodium Phosphate Inj/NS 250 ml Inj) 250 ml @ 42 mls/hr UNSCH PRN IV 10/23/16 15:15 (Tylenol) 650 mg Q6H PRN PO 10/23/16 15:15 (Zofran Inj) 4 mg Q6H PRN IV 10/23/16 15:15 (Colace) 100 mg BID PO 10/23/16 21:00 10/24/16 21:03 (Heparin Inj) 5,000 units Q8H SQ 10/23/16 16:00 10/25/16 09:43 Miscellaneous Information 1 Q361D XX 10/23/16 15:15 (Chlorhexidine 2% Cloth) 3 pack Taper DAILY@04 TOP 10/24/16 04:00 10/20/17 03:59 (Chlorhexidine 2% Cloth) 3 pack UNSCH PRN TOP 10/23/16 15:15 Vital Signs / I&O Vital Signs Date Time Temp Pulse Resp B/P Pulse Ox O2 Delivery O2 Flow Rate FiO2 10/25/16 08:00 100 Room Air 10/25/16 08:00 98.6 66 18 144/80 100 10/25/16 07:00 66 10/25/16 04:00 100 Room Air 10/25/16 04:00 66 10/25/16 03:00 64 10/25/16 03:00 98.4 66 18 121/78 100 10/25/16 02:00 77 10/25/16 01:00 75 10/25/16 00:00 100 Room Air 10/25/16 00:00 73 10/24/16 23:00 68 10/24/16 23:00 98.5 73 18 138/83 100 10/24/16 22:00 73 10/24/16 21:00 76 10/24/16 20:00 99 Room Air 10/24/16 20:00 77 10/24/16 19:00 98.1 78 18 129/82 99 10/24/16 19:00 81 10/24/16 16:00 98.4 75 18 135/80 100 10/24/16 16:00 100 10/24/16 16:00 Room Air 10/24/16 12:00 96 Room Air 10/24/16 11:29 89 10/24/16 11:29 98.7 89 18 119/82 99 I/O 10/24/16 10/24/16 10/24/16 10/25/16 10/25/16 10/25/16 07:00 15:00 23:00 07:00 15:00 23:00 Intake Total 480 ml 120 ml 450 ml Output Total 300 ml 400 ml Balance 180 ml 120 ml 50 ml Intake Oral 480 ml 120 ml 450 ml Output Urine Total 300 ml 400 ml # Voids 2 # Bowel Movements 0 0 Physical Exam GENERAL: Well developed, well nourished. No acute distress. HEENT: Jugular venous pressure is normal. CHEST: Lungs clear to auscultation bilaterally. Unlabored respiratory effort. CARDIAC: Regular rate and rhythm without S3, S4, or murmur. ABDOMEN: Soft, nontender, no hepatosplenomegaly. Bowel sounds present. EXTREMITIES: No clubbing, cyanosis, or edema. Laboratory Laboratory Tests Test 10/24/16 10/25/16 14:41 03:52 Troponin I 0.79 NG/ML White Blood Count 8.2 TH/MM3 Red Blood Count 5.76 MIL/MM3 Hemoglobin 13.4 GM/DL Hematocrit 41.6 % Mean Corpuscular Volume 72.2 FL Mean Corpuscular Hemoglobin 23.3 PG Mean Corpuscular Hemoglobin 32.2 % Concent Red Cell Distribution Width 15.8 % Platelet Count 214 TH/MM3 Mean Platelet Volume 9.9 FL Sodium Level 141 MEQ/L Potassium Level 3.8 MEQ/L Chloride Level 106 MEQ/L Carbon Dioxide Level 27.6 MEQ/L Anion Gap 7 MEQ/L Blood Urea Nitrogen 15 MG/DL Creatinine 1.41 MG/DL Estimat Glomerular Filtration 72 ML/MIN Rate Random Glucose 79 MG/DL Calcium Level 8.7 MG/DL Phosphorus Level 5.0 MG/DL Magnesium Level 2.2 MG/DL Assessment and Plan Assessment and Plan Dysrhythmia: This is almost certainly secondary to his illicit drug use. I suspect that the marijuana was laced with some other drugs. The patient previously reports that he was in good health and is able to literally play basketball and do back flips without any difficulty. At this point I would continue ruling him out and observe him. I am a bit apprehensive to put him on any beta-blockers given that he had taken such a large amount of Cardizem last night though if he has recurrent episodes I would go ahead and start it. 10/24-stable without meds, no further episodes after last evening -EPS and meds risk/bene discussed, he decline which I feel is reasonable as this happened with illicit drug use 10/25- 48 hour of tele without further events, no change NSTEMI- likely secondary to tachycardia, cardioversion in setting of Cr >2 - cath vs nuc discussed => nuc pending -pt not sure of etiology of dad's Dispo- ok for D/C if nuc is not ischemic and EF >40% Aida Pablo MD October 25, 2016 10:32
[2016-10-25] MEDS ORDERED: REGADENOSON INJ 0.4 MG/5 ML SYR ONE (12:51)
--- NOTE | 2016-10-25 15:29 | RADRPT ---
EXAM DATE/TIME: 10/25/2016 12:35 [facility] COMPARISON: No previous studies available for comparison. INDICATIONS : Chest pain with tachycardia. Atrial fibrillation. Angina. DOSE: 26.4 mCi Tc99m Myoview at stress. 10.2 mCi Tc99m Myoview at rest. 0.4 mg Lexiscan STRESS SYMPTOMS: Shortness of breath. EJECTION FRACTION: 43% MEDICAL HISTORY : Current smoker. SURGICAL HISTORY : None. ENCOUNTER: Initial ACUITY: 1 day PAIN SCALE: 3/10 LOCATION: Substernal chest TECHNIQUE: The patient underwent pharmacologic stress with infusion of prescribed dose. Continuous ECG tracing was monitored during stress. Gated SPECT imaging was performed after stress and conventional SPECT i maging was performed at rest. The examination was performed on a SPECT/CT scanner, both attenuation and non-corrected datasets were reviewed. FINDINGS: DISTRIBUTION: The maximum perfused segment at stress is in the anterior wall. PERFUSION STUDY: There is moderately diminished perfusion involving the cardiac apex. No definite evidence of redistri bution. GATED STUDY: Moderate left ventricular chamber enlargement with global mild hypokinesis. CONCLUSION: Fixed apical perfusion abnormality. Moderate LV dysfunction. No definite ischemia. RISK CATEGORY: Intermediate (1-3% Annual Mortality Rate) Reynaldo Fraire MD on October 25, 2016 at 15:23 Board Certified Radiologist. This report was verified electronically.
--- NOTE | 2016-10-26 11:37 | HHI.DS ---
Discharge Summary Admission Date October 23, 2016 at 15:30 Discharge Date: October 25, 2016 Admitting Diagnosis VTach (1) Wide-complex tachycardia ICD Code: I47.2 (2) Elevated troponin I level ICD Code: R74.8 Procedures none Brief History - From Admission This is a 31 year old male with a completely unremarkable past medical history in his usual state of health who presents to the emergency department with a few hours of acute shortness of breath and chest pain. He states that he has been smoking nightly marijuana and drinking about 1/2 to 1 beer each night, and last night after smoking a joint, he had acute onset of this shortness of breath and substernal chest pain. He states that he could not lie flat with this, and felt much better with a fan blowing on him. states getting up and trying to walk around made it worse, and when he did sit up, he became dizzy and light-headed. This has never happened to him before. He states that when it happened, he took 2 of his mother's "heart pills" which begin with a d- and he thinks are some kind of "channel jeffy." He denies fever, chills, LE edema, recent infections, palpitations, heat or cold intolerance, polydypsia, polyuria. denies constipation, diarrhea, abdominal pain. He denies any other illicit drugs, in particular, he has never tried cocaine, methamphetamine. He does state that his father "dropped suddenly on the basketball court in his early 30s". In the emergency department, when he arrived, he was found to be in a wide- complex tachycardia with HR in the 200s, and a sbp in the 90s. He was cardioverted back into NSR. two more episodes of what appeared to be ventricular tachycardia spontaneously converted after that. His laboratory data is significant for Cr 2.3, K 3.6, Mg 1.9, trop 0.59, CK 257. BNP pending. Critical care medicine is consulted to evaluate and manage his new wide- complex arrhythmia. CBC/BMP: 10/25/16 0352 10/25/16 0352 Significant Findings Laboratory Tests Test 10/23/16 10/23/16 10/24/16 10/24/16 13:36 22:00 06:12 06:45 White Blood Count 13.8 TH/MM3 (4.0-11.0) Red Blood Count 6.32 MIL/MM3 5.93 MIL/MM3 (4.50-5.90) (4.50-5.90) Mean Corpuscular Volume 72.8 FL 72.2 FL (80.0-100.0) (80.0-100.0) Mean Corpuscular Hemoglobin 22.4 PG 22.4 PG (27.0-34.0) (27.0-34.0) Mean Corpuscular Hemoglobin 30.7 % 31.1 % Concent (32.0-36.0) (32.0-36.0) Neutrophils # (Auto) 9.4 TH/MM3 (1.8-7.7) Monocytes # (Auto) 1.0 TH/MM3 (0-0.9) Bedside Blood Urea Nitrogen 29 MG/DL (8-26) Blood Urea Nitrogen 24 MG/DL (7-18) Creatinine 2.30 MG/DL 1.53 MG/DL (0.60-1.30) (0.60-1.30) Bedside Creatinine 2.2 MG/DL (0.8-1.3) Estimat Glomerular Filtration 41 ML/MIN (>89) 65 ML/MIN (>89) Rate Bedside Glucose 138 MG/DL (60-95) Random Glucose 138 MG/DL (74-106) Creatine Kinase MB 4.1 NG/ML (0.5-3.6) Troponin I 0.59 NG/ML 1.43 NG/ML 1.40 NG/ML (0.02-0.05) (0.02-0.05) (0.02-0.05) B-Type Natriuretic Peptide 501 PG/ML (0-100) Digoxin Level 0.2 NG/ML (0.8-2.0) Salicylates Level 2.0 MG/DL (2.8-20.0) Acetaminophen Level LESS THAN 2.0 MCG/ML (10.0-30.0) LDL Cholesterol 125 MG/DL (0-99) HDL Cholesterol 25.6 MG/DL (40.0-60.0) Urine Benzodiazepines Screen POS (NEG) Urine Cannabinoids Screen POS (NEG) Test 10/24/16 10/25/16 14:41 03:52 Troponin I 0.79 NG/ML (0.02-0.05) Mean Corpuscular Volume 72.2 FL (80.0-100.0) Mean Corpuscular Hemoglobin 23.3 PG (27.0-34.0) Creatinine 1.41 MG/DL (0.60-1.30) Estimat Glomerular Filtration 72 ML/MIN (>89) Rate Phosphorus Level 5.0 MG/DL (2.5-4.9) PE at Discharge GENERAL: NAD SKIN: Warm and dry. HEAD: Normocephalic. EYES: No scleral icterus. No injection or drainage. NECK: Supple, trachea midline. No JVD or lymphadenopathy. CARDIOVASCULAR: Regular rate and rhythm without murmurs, gallops, or rubs. RESPIRATORY: Breath sounds equal bilaterally. No accessory muscle use. GASTROINTESTINAL: Abdomen soft, non-tender, nondistended. MUSCULOSKELETAL: No cyanosis, or edema. BACK: Nontender without obvious deformity. No CVA tenderness. Hospital Course Wide Complex Tachycardia- -- He underwent nuclear stress test per cardiology 10/25/16 which was negative -- 2-D echo with Systolic function was normal. The estimated ejection fraction was in the range of 60% to 65%. Wall motion was normal;there were no regional wall motion abnormalities -- continue telemetry. -- TSH, free t4 normal. -- urine drug screen positive for benzos (iatrogenic) and cannabinoids. Elevated Troponin- --Now trending down and likely combination of demand from tachycardia and leak from cardioversion Acute Kidney Injury- resolving. -- most likely pre-renal from tachycardia mediated hypoperfusion -- Renal indices, creatinine trending down Hypokalemia, Hypomagnesemia -- Resolved Pt Condition on Discharge: Stable Discharge Disposition: Discharge Home Discharge Time: <= 30 minutes Discharge Instructions DIET: Follow Instructions for: Heart Healthy Diet Activities you can perform: Regular-No Restrictions Follow up Referrals: PCP Follow-up - 1 Week Medication Profile: No Active Prescriptions or Reported Meds Ayush Parmar MD October 26, 2016 11:37
== END 2016-10-25 16:30 | disposition home or self-care (01) | DRG 917 ==
LOC: NEPE 12:52 → NEDA 15:30 → HCVR 16:40 → HCIN 10-24 13:00
PROVIDERS: ADMIT Hospitalist; ATTEND Hospitalist
DX: T65.91XA Toxic effect of unspecified substance, accidental (unintentional), initial encounter (principal); I21.4 Non-ST elevation (NSTEMI) myocardial infarction; I47.2 Ventricular tachycardia; N17.9 Acute kidney failure, unspecified; F17.210 Nicotine dependence, cigarettes, uncomplicated; F12.90 Cannabis use, unspecified, uncomplicated; E87.6 Hypokalemia; E83.42 Hypomagnesemia
CPT/HCPCS: 71010; 78452; 80048; 80061; 80162; 80307; 82435; 82550; 82552; 82565; 82947; 83735; 83880; 84100; 84132; 84295; 84439; 84443; 84484; 84520; 85025; 85027; 85610; 85730; 93005; 93017; 93306; 94150; 94640; 94667; 94668; 96374; 96375; A9502; J0610; J1644; J2001; J2250; J2785; J3475; J7030